=== PATIENT | male | born 1990 | race Caucasian/White ===

== ENCOUNTER 2018-08-11 18:42 | Emergency (ER) | payer OTHER ==
[~2018-08-11] VITALS: Ht 190.5 cm; Wt 88.5 kg
[~2018-08-11 18:42] MED LIST: BACTRIM DS TAB1 EACH PO; CEPHALEXIN 500500 M3 PO; IBUPROFEN 800800 M1 PO; NAPROSYN500 MG PO; NORFLEX100 MG PO; ULTRAM 50MG TAB50 MG PO
[2018-08-11 19:24] LABS: ABSOLUTE LYMPHOCYTES 0.7 thou/uL (0.8-5.3); ABSOLUTE MONOCYTES 0.5 thou/uL (0.0-1.2); ABSOLUTE NEUTROPHILS 3.8 thou/uL (1.6-8.1); BASOPHILS 0.5 %; EOSINOPHILS 0.1 %; HEMATOCRIT 41.1 % (42.0-52.0); HEMOGLOBIN 14.4 gm/dL (14.0-18.0); LYMPHOCYTES 13.8 %; MCH 30.7 pg (26.0-34.0); MCHC 35.1 g/dL (28.0-37.0); MCV 87.6 fL (80.0-100.0); MONOCYTES 10.5 %; MPV 7.8 fl. (7.2-11.1); NUCLEATED RBCS 0 /100WBC; PLATELET COUNT* 183 thou/uL (150-400); POLYS 75.1 %; RBC 4.69 mil/uL (4.50-6.00); RDW-CV 12.4 % (10.5-14.5); WBC 5.1 thou/uL (4.0-11.0)
[2018-08-11 19:36] LABS: ALBUMIN 3.4 g/dL (3.4-5.0); CALCIUM 8.9 mg/dL (8.5-10.1); CREATININE 1.1 mg/dL (0.6-1.3); POTASSIUM 3.7 mmol/L (3.5-5.1); TOTAL BILIRUBIN 0.6 mg/dL (<0.1-1.0); TOTAL PROTEIN 7.2 g/dL (6.4-8.2)
[2018-08-11 19:47] LABS: INFLUENZA A ANTIGEN None Detected (None Detect); INFLUENZA B ANTIGEN None Detected (None Detect)
[2018-08-11] MEDS ORDERED: KEFLEX500 M2 PO (21:27)
[2018-08-11 22:10] VITALS: BP 126/78
== END 2018-08-11 22:11 | disposition home or self-care (01) ==
LOC: M.ERS 18:42
PROVIDERS: Nurse Practitioner Family
DX: R59.0 Localized enlarged lymph nodes (principal); R50.9 Fever, unspecified

== ENCOUNTER 2018-08-29 18:25 | Emergency (ER) | payer OTHER ==
[~2018-08-29] VITALS: Ht 190.5 cm; Wt 90.7 kg
[~2018-08-29 18:25] MED LIST changes: +KEFLEX500 M2 PO
[2018-08-29] MEDS ORDERED: IBUPROFEN 600600 M1 PO (19:26)
[2018-08-29 19:47] VITALS: BP 131/71
== END 2018-08-29 19:48 | disposition home or self-care (01) ==
LOC: M.ERS 18:25
DX: S61.411A Laceration without foreign body of right hand, initial encounter (principal); Z88.6 Allergy status to analgesic agent; W26.0XXA Contact with knife, initial encounter; Y92.89 Other specified places as the place of occurrence of the external cause; Y93.89 Activity, other specified; Y99.8 Other external cause status

== ENCOUNTER 2018-11-27 17:36 | Emergency (ER) | payer OTHER ==
[~2018-11-27] VITALS: Ht 190.5 cm; Wt 99.8 kg
[~2018-11-27 17:36] MED LIST changes: +IBUPROFEN 600600 M1 PO
[2018-11-27 19:06] VITALS: BP 140/93
== END 2018-11-27 19:07 | disposition home or self-care (01) ==
LOC: M.ERS 17:36
DX: S61.214A Laceration without foreign body of right ring finger without damage to nail, initial encounter (principal); S61.212A Laceration without foreign body of right middle finger without damage to nail, initial encounter; Z88.6 Allergy status to analgesic agent; W25.XXXA Contact with sharp glass, initial encounter; Y93.89 Activity, other specified; Y92.89 Other specified places as the place of occurrence of the external cause; Y99.8 Other external cause status